=== PATIENT | male | born 1950 | race Caucasian/White ===

== ENCOUNTER → 2017-03-30 | Outpatient (CLI) | payer OTHER ==
[2015-12-19 10:51] VITALS: BP 107/82
--- NOTE | 2017-03-30 11:59 | RAD ---
Examination: Chest, PA and lateral views History: COPD, lymphoma Comparison reference 12/19/2015 Findings: Continued borderline cardiomegaly. Interval appearance of extensive airspace disease and pl eural effusion at the left base, obscuring the costophrenic angle and left hemidiaphragm. The interst itial pulmonary pattern in the right lung is exaggerated. A small right pleural effusion is present. Impression: Stable borderline cardiomegaly. Interval appearance of asymmetric pleural effusions and l eft lower lung infiltrate or atelectasis. No change in position of the right subclavian injection por t terminating in the SVC. Reported By:
== END | disposition home or self-care (01) | DRG 191 ==
LOC: LAB 11:31
PROVIDERS: ATTEND Obstetrics & Gynecology Obstetrics
DX: J44.9 Chronic obstructive pulmonary disease, unspecified (principal); C85.85 Other specified types of non-Hodgkin lymphoma, lymph nodes of inguinal region and lower limb; E29.1 Testicular hypofunction; I51.7 Cardiomegaly
CPT/HCPCS: 71020

== ENCOUNTER → 2017-03-31 | Outpatient (CLI) | payer OTHER ==
[2015-12-19 10:51] VITALS: BP 107/82
[2017-03-31 09:06] LABS: BASOPHILS # (AUTO) 0.1 X10^3/uL (0.0-0.1); BASOPHILS % (AUTO) 1.5 % (0.2-1.0); EOSINOPHILS % (AUTO) 0.7 % (0.9-2.9); HEMATOCRIT 41.9 % (42.0-54.0); HEMOGLOBIN 13.9 g/dL (13.5-18.0); LYMPHOCYTES # (AUTO) 0.9 X10^3/uL (1.3-2.9); MEAN CORPUSCULAR HEMOGLOBIN 29.5 pg (27.0-34.0); MEAN CORPUSCULAR HGB CONC 33.1 g/dL (33.0-35.0); MEAN CORPUSCULAR VOLUME 89.1 fL (80.0-100.0); MEAN PLATELET VOLUME 8.8 fL (7.4-11.0); MONOCYTES # (AUTO) 0.4 x10^3/uL (0.3-0.8); MONOCYTES % (AUTO) 10.3 % (0.0-13.0); NEUTROPHILS # (AUTO) 2.7 x10^3/uL (2.2-4.8); NEUTROPHILS % (AUTO) 66.5 % (42.0-75.0); PLATELET COUNT 83 X10^3/uL (150.0-450.0); WHITE BLOOD COUNT 4.1 X10^3/uL (3.6-10.0)
[2017-03-31 09:20] LABS: ALANINE AMINOTRANSFERASE 20 Units/L (12-78); ALBUMIN 3.5 g/dL (3.4-5.0); ALKALINE PHOSPHATASE 86 Units/L (46-116); ASPARTATE AMINO TRANSFERASE 21 Units/L (15-37); BLOOD UREA NITROGEN 20 mg/dL (7-18); CALCIUM 8.5 mg/dL (8.5-10.1); CARBON DIOXIDE 28.2 mmol/L (21-32); CHLORIDE 104 mmol/L (98-107); CREATININE 1.55 mg/dL (0.70-1.30); SODIUM 140 mmol/L (136-145); eGFR BLACK RACES 58 (>60); eGFR NON BLACK RACES 48 (>60)
== END ==
LOC: LAB 08:37
PROVIDERS: ATTEND Obstetrics & Gynecology Obstetrics
DX: J44.9 Chronic obstructive pulmonary disease, unspecified (principal); C85.85 Other specified types of non-Hodgkin lymphoma, lymph nodes of inguinal region and lower limb; R06.09 Other forms of dyspnea; R09.89 Other specified symptoms and signs involving the circulatory and respiratory systems; E29.1 Testicular hypofunction
CPT/HCPCS: 36415; 80053; 82670; 84403; 85025

== ENCOUNTER 2017-04-01 11:50 | Inpatient (IN) | payer OTHER ==
--- NOTE | 2017-04-01 11:55 | DR.SOBA ---
HPI - Time Seen Time seen: 11:54 - Complaints Chief Complaint Doctors Comments: INCREASING SOB. - Reviewed Nurses Notes Reviewed: Yes - Modifying Factors Worsens:: Nothing - Associated Signs and Symptoms Associated Signs and Symptoms: None PMH - PMH Past Medical History: COPD, Diabetes, Hypertension Past Surgical History: Yes Surgical History: Other - Family History Family Medical History: Hypertension - Social History Do you use any recreational Drugs:: No PE - Vital Signs Vitals: Temperature 100.0 F Pulse Rate 70 Respiratory Rate 18 Blood Pressure [Left Arm] 110/57 Blood Pressure [Right Arm] 123/85 Blood Pressure 125/75 O2 Sat by Pulse Oximetry 98 ROR - Labs Reviewed Result Diagrams: 04/02/17 04:45 04/02/17 04:45 Laboratory: WBC 8.7 X10^3/uL (3.6-10.0) 04/01/17 12:28 RBC 5.06 X10^6/uL (4.7-6.0) 04/01/17 12:28 Hgb 15.1 g/dL (13.5-18.0) 04/01/17 12:28 Hct 44.9 % (42.0-54.0) 04/01/17 12:28 MCV 88.7 fL (80.0-100.0) 04/01/17 12:28 MCH 29.8 pg (27.0-34.0) 04/01/17 12:28 MCHC 33.6 g/dL (33.0-35.0) 04/01/17 12:28 RDW 17.9 % (11.6-16.5) H 04/01/17 12:28 Plt Count 81 X10^3/uL (150.0-450.0) L 04/01/17 12:28 MPV 8.6 fL (7.4-11.0) 04/01/17 12:28 Neut % 84.8 % (42.0-75.0) H 04/01/17 12:28 Lymph % 8.9 % (21.0-51.0) L 04/01/17 12:28 Nash % 5.9 % (0.0-13.0) 04/01/17 12:28 Eos % 0.0 % (0.9-2.9) L 04/01/17 12:28 Baso % 0.4 % (0.2-1.0) 04/01/17 12:28 Neut # 7.4 x10^3/uL (2.2-4.8) H 04/01/17 12:28 Lymph # 0.8 X10^3/uL (1.3-2.9) L 04/01/17 12:28 Nash # 0.5 x10^3/uL (0.3-0.8) 04/01/17 12:28 Eos # 0.0 x10^3/uL (0.0-0.2) 04/01/17 12:28 Baso # 0.0 X10^3/uL (0.0-0.1) 04/01/17 12:28 Absolute Nucleated RBC 0.1 /100WBC 04/01/17 12:28 Sodium 140 mmol/L (136-145) 04/01/17 12:28 Corrected Sodium TNP 04/01/17 12:28 Potassium 4.8 mmol/L (3.5-5.1) 04/01/17 12:28 Chloride 103 mmol/L (98-107) 04/01/17 12:28 Carbon Dioxide 25.2 mmol/L (21-32) 04/01/17 12:28 BUN 23 mg/dL (7-18) H 04/01/17 12:28 Creatinine 1.77 mg/dL (0.70-1.30) H 04/01/17 12:28 Est GFR (MDRD) Af Amer 50 (>60) L 04/01/17 12:28 Est GFR (MDRD) Non-Af 41 (>60) L 04/01/17 12:28 Glucose 89 mg/dL (65-99) 04/01/17 12:28 Calcium 8.6 mg/dL (8.5-10.1) 04/01/17 12:28 Corrected Calcium TNP 04/01/17 12:28 Total Bilirubin 1.50 mg/dL (0.2-1.0) H 04/01/17 12:28 AST 93 Units/L (15-37) H 04/01/17 12:28 ALT 57 Units/L (12-78) 04/01/17 12:28 Alkaline Phosphatase 98 Units/L (46-116) 04/01/17 12:28 Creatine Kinase 170 Units/L (39-308) 04/01/17 12:28 CK-MB (CK-2) < 1.0 ng/mL (0-4.0) 04/01/17 12:28 CK/CKMB % Calc 0.6 % (<4) 04/01/17 12:28 Troponin I 0.06 ng/mL (0-1.5) 04/01/17 12:28 C-Reactive Protein 55.70 mg/L (0-3.0) H 04/01/17 12:28 Total Protein 6.4 g/dL (6.4-8.2) 04/01/17 12:28 Albumin 3.7 g/dL (3.4-5.0) 04/01/17 12:28 Globulin 2.7 g/dL (2.5-4.5) 04/01/17 12:28 Albumin/Globulin Ratio 1.4 Ratio (1.1-2.1) 04/01/17 12:28 - Discharge Plan Disposition: ADMITTED INPATIENT Condition: Stable - Follow ups/Referrals - Instructions
[2017-04-01] MEDS ORDERED: DUONEB 0.5 MG/3 MG ONE (12:03)
[2017-04-01] MEDS ORDERED: DUONEB 0.5 MG/3 MG NEB ONE (12:10)
[2017-04-01] MEDS ORDERED: SOLU-Medrol 125 MG VIAL IVP ONE (12:10)
[2017-04-01] MEDS ORDERED: SOLU-Medrol 125 MG VIAL ONE (12:19)
[2017-04-01 12:40] LABS: BASOPHILS % (AUTO) 0.4 % (0.2-1.0); HEMATOCRIT 44.9 % (42.0-54.0); HEMOGLOBIN 15.1 g/dL (13.5-18.0); LYMPHOCYTES # (AUTO) 0.8 X10^3/uL (1.3-2.9); LYMPHOCYTES % (AUTO) 8.9 % (21.0-51.0); MEAN CORPUSCULAR HEMOGLOBIN 29.8 pg (27.0-34.0); MEAN CORPUSCULAR HGB CONC 33.6 g/dL (33.0-35.0); MEAN CORPUSCULAR VOLUME 88.7 fL (80.0-100.0); MEAN PLATELET VOLUME 8.6 fL (7.4-11.0); MONOCYTES # (AUTO) 0.5 x10^3/uL (0.3-0.8); MONOCYTES % (AUTO) 5.9 % (0.0-13.0); NEUTROPHILS # (AUTO) 7.4 x10^3/uL (2.2-4.8); NEUTROPHILS % (AUTO) 84.8 % (42.0-75.0); PLATELET COUNT 81 X10^3/uL (150.0-450.0); RED BLOOD COUNT 5.06 X10^6/uL (4.7-6.0); RED CELL DISTRIBUTION WIDTH 17.9 % (11.6-16.5); WHITE BLOOD COUNT 8.7 X10^3/uL (3.6-10.0)
[2017-04-01 12:55] LABS: BLOOD UREA NITROGEN 23 mg/dL (7-18); CALCIUM 8.6 mg/dL (8.5-10.1); CARBON DIOXIDE 25.2 mmol/L (21-32); CHLORIDE 103 mmol/L (98-107); CREATININE 1.77 mg/dL (0.70-1.30); SODIUM 140 mmol/L (136-145); TROPONIN I 0.06 ng/mL (0-1.5); eGFR BLACK RACES 50 (>60); eGFR NON BLACK RACES 41 (>60)
[2017-04-01 12:59] LABS: ALANINE AMINOTRANSFERASE 57 Units/L (12-78); ALBUMIN 3.7 g/dL (3.4-5.0); ALKALINE PHOSPHATASE 98 Units/L (46-116); ASPARTATE AMINO TRANSFERASE 93 Units/L (15-37); CREATINE KINASE 170 Units/L (39-308); CREATINE KINASE MB < 1.0 ng/mL (0-4.0); TOTAL PROTEIN 6.4 g/dL (6.4-8.2)
[2017-04-01 13:00] LABS: CKMB % 0.6 % (<4)
--- NOTE | 2017-04-01 13:14 | RAD ---
Examination: AP chest History: SOB Comparison reference 03/30/2017 Findings: Stable heart size. Extensive opacity continues at the left base, compatible with combinatio n of airspace disease and left pleural effusion. The right lung is essentially clear although the ext yashira costophrenic angle is not included; small pleural effusion may still be present. There is no nicole nge in position of the right subclavian injection port. Impression: Considering technical and projection differences there is little if any change. Large are as of pulmonary consolidation and pleural fluid continue at the left base. Reported By:
[2017-04-01 15:07] LABS: C-REACTIVE PROTEIN 55.7 mg/L (0-3.0)
[2017-04-01] MEDS ORDERED: ROCEPHIN 1 GM IV PREMIX 1 GM/50 ML IV.SOLN. IV ONE (15:14)
[2017-04-01] MEDS ORDERED: NS 1/2 1000 ML IV 1,000 ML IV ONE (15:14)
[2017-04-01] MEDS ORDERED: ROCEPHIN VIAL 1 GM 1 GM in NS 50 ML IV + SPIKE MINIBAG* 50 ML IV SCH (15:15)
[2017-04-01 15:16] LABS: LACTIC ACID 2.5 mmol/L (0.4-2.0)
[2017-04-01] MEDS: NS 1/2 1000 ML IV 1,000 ML IV SCH (15:20)
[2017-04-01] MEDS ORDERED: TUSSIONEX PENNKINETIC SUSP PO PRN (15:22)
[2017-04-01] MEDS: DUONEB 0.5 MG/3 MG NEB SCH ×2 (16:11→20:22)
[2017-04-01 16:55] VITALS: BMI 23.7
[2017-04-01 17:32] LABS: BILIRUBIN,URINE NEGATIVE (NEGATIVE); BLOOD/HEMOGLOBIN,URINE 2+ (NEGATIVE); GLUCOSE, URINE NEGATIVE (NEGATIVE); KETONES,URINE 1+ (NEGATIVE); LEUKOCYTE ESTERASE ,URINE NEGATIVE (NEGATIVE); NITRITES,URINE NEGATIVE (NEGATIVE); PROTEIN,URINE 2+ (NEGATIVE); UROBILINOGEN,URINE 1+ (NORMAL)
[2017-04-01] MEDS: FORTAZ or TAZICEF INJ 1 GM in NS 50 ML IV 50 ML IV SCH ×2 (17:46→21:30)
[2017-04-01] MEDS: ROBITUSSIN DM PO SCH ×2 (17:46→20:25)
[2017-04-01 17:53] LABS: APPEARANCE,URINE SLIGHTLY HAZY (CLEAR); COLOR,URINE YELLOW (YELLOW)
[2017-04-01 17:54] LABS: AMORPHOUS SEDIMENT,UR 1+ /HPF (NEGATIVE); BACTERIA,URINE TRACE /HPF (NEGATIVE); GRANULAR CASTS,URINE MANY /LPF (NEGATIVE); MUCUS,URINE FEW /HPF (NEGATIVE); SQUAMOUS EPITHELIAL CELL,UR RARE /HPF (NEGATIVE)
[2017-04-02] MEDS: DUONEB 0.5 MG/3 MG NEB SCH ×6 (01:07→20:49)
[2017-04-02] MEDS: FORTAZ or TAZICEF INJ 1 GM in NS 50 ML IV 50 ML IV SCH ×3 (05:44→21:42)
--- NOTE | 2017-04-02 06:08 | RAD ---
Examination: Chest, PA and lateral views History: Pneumonia Comparison reference 04/01/2017 Findings: Continued upper normal heart size. Very small right pleural effusion, larger left pleural e ffusion. Airspace disease is noted in the partly obscured left lower lung. Diffuse interstitial promi nence is present bilaterally. No pneumothorax is seen. Impression: Persistent pleural-parenchymal abnormality left base with very small right pleural effusi on as well. Considering projection differences, little change since 1 day prior. Reported By:
[2017-04-02 06:20] LABS: BASOPHILS % (AUTO) 0.1 % (0.2-1.0); HEMATOCRIT 38.4 % (42.0-54.0); HEMOGLOBIN 12.9 g/dL (13.5-18.0); LYMPHOCYTES # (AUTO) 0.7 X10^3/uL (1.3-2.9); LYMPHOCYTES % (AUTO) 8.2 % (21.0-51.0); MEAN CORPUSCULAR HEMOGLOBIN 29.6 pg (27.0-34.0); MEAN CORPUSCULAR HGB CONC 33.8 g/dL (33.0-35.0); MEAN CORPUSCULAR VOLUME 87.8 fL (80.0-100.0); MEAN PLATELET VOLUME 8.8 fL (7.4-11.0); MONOCYTES # (AUTO) 0.4 x10^3/uL (0.3-0.8); MONOCYTES % (AUTO) 4.3 % (0.0-13.0); NEUTROPHILS # (AUTO) 7.7 x10^3/uL (2.2-4.8); NEUTROPHILS % (AUTO) 87.4 % (42.0-75.0); PLATELET COUNT 68 X10^3/uL (150.0-450.0); RED BLOOD COUNT 4.37 X10^6/uL (4.7-6.0); RED CELL DISTRIBUTION WIDTH 17.6 % (11.6-16.5); WHITE BLOOD COUNT 8.8 X10^3/uL (3.6-10.0)
[2017-04-02] MEDS: NS 1/2 1000 ML IV 1,000 ML IV SCH ×2 (06:28→08:47)
[2017-04-02 06:41] LABS: ALBUMIN 2.6 g/dL (3.4-5.0); CALCIUM 7.8 mg/dL (8.5-10.1); CARBON DIOXIDE 25.7 mmol/L (21-32); COR CA(FOR HYPOALB) 8.9 mg/dL (8.5-10.1); CREATININE 1.58 mg/dL (0.70-1.30)
[2017-04-02] MEDS: LEVAQUIN PREMIX IV 750 MG 750 MG/150 ML BAG IV SCH (08:45)
[2017-04-02] MEDS: ROBITUSSIN DM PO SCH ×4 (08:46→21:41)
[2017-04-02] MEDS ORDERED: ATIVAN TAB 0.5 MG PO PRN (10:54)
[2017-04-02] MEDS ORDERED: PREGABALIN 300 MG PO SCH (11:00)
[2017-04-02] MEDS ORDERED: TOPROL XL PO SCH (11:00)
[2017-04-02] MEDS ORDERED: NS 1/2 1000 ML IV 1,000 ML IV ONE (12:57)
[2017-04-02] MEDS: CYMBALTA PO SCH (13:12)
[2017-04-02] MEDS: GLUCOPHAGE XR PO SCH ×2 (13:12→21:41)
[2017-04-02] MEDS: NORCO 10/325 TAB PO PRN (13:13)
[2017-04-02] MEDS: COREG TAB 6.25 MG PO SCH ×2 (13:13→21:41)
[2017-04-02] MEDS: ALBUMIN HUMAN 25%- 100ML 100 ML IV SCH (13:14)
[2017-04-02] MEDS: LASIX IVP SCH (16:54)
[2017-04-02] MEDS: M.S. CONTIN 30 MG EXTENDED RELEASE PO PRN (21:41)
[2017-04-02] MEDS: LYRICA CAP 150 MG PO SCH (21:41)
[2017-04-03] MEDS: DUONEB 0.5 MG/3 MG NEB SCH ×6 (01:05→20:53)
[2017-04-03] MEDS ORDERED: NS 1/2 1000 ML IV 1,000 ML IV ONE (05:14)
[2017-04-03] MEDS: NORCO 10/325 TAB PO PRN (05:16)
[2017-04-03] MEDS: FORTAZ or TAZICEF INJ 1 GM in NS 50 ML IV 50 ML IV SCH ×3 (05:17→21:25)
[2017-04-03] MEDS: NS 1/2 1000 ML IV 1,000 ML IV SCH (05:17)
[2017-04-03 05:28] LABS: BASOPHILS % (AUTO) 0.1 % (0.2-1.0); EOSINOPHILS % (AUTO) 0.1 % (0.9-2.9); HEMATOCRIT 36.7 % (42.0-54.0); HEMOGLOBIN 12.2 g/dL (13.5-18.0); LYMPHOCYTES # (AUTO) 0.6 X10^3/uL (1.3-2.9); LYMPHOCYTES % (AUTO) 10.7 % (21.0-51.0); MEAN CORPUSCULAR HEMOGLOBIN 29.6 pg (27.0-34.0); MEAN CORPUSCULAR HGB CONC 33.2 g/dL (33.0-35.0); MEAN CORPUSCULAR VOLUME 89.2 fL (80.0-100.0); MEAN PLATELET VOLUME 8.7 fL (7.4-11.0); MONOCYTES # (AUTO) 0.4 x10^3/uL (0.3-0.8); MONOCYTES % (AUTO) 6.6 % (0.0-13.0); NEUTROPHILS # (AUTO) 4.6 x10^3/uL (2.2-4.8); NEUTROPHILS % (AUTO) 82.5 % (42.0-75.0); PLATELET COUNT 63 X10^3/uL (150.0-450.0); RED BLOOD COUNT 4.11 X10^6/uL (4.7-6.0); RED CELL DISTRIBUTION WIDTH 17.9 % (11.6-16.5); WHITE BLOOD COUNT 5.5 X10^3/uL (3.6-10.0)
[2017-04-03 05:39] LABS: ALANINE AMINOTRANSFERASE 51 Units/L (12-78); ALKALINE PHOSPHATASE 63 Units/L (46-116); ASPARTATE AMINO TRANSFERASE 54 Units/L (15-37); BLOOD UREA NITROGEN 20 mg/dL (7-18); CARBON DIOXIDE 29.2 mmol/L (21-32); CHLORIDE 106 mmol/L (98-107); COR CA(FOR HYPOALB) 8.8 mg/dL (8.5-10.1); CREATININE 1.29 mg/dL (0.70-1.30); SODIUM 141 mmol/L (136-145); TOTAL PROTEIN 5.2 g/dL (6.4-8.2); eGFR BLACK RACES > 60 (>60); eGFR NON BLACK RACES 59 (>60)
--- NOTE | 2017-04-03 06:42 | RAD ---
Examination: Chest, PA and lateral views History: Pneumonia, history of lymphoma Comparison reference 04/02/2017 Findings: Stable heart size with no change in the left lower lung parenchymal abnormality and associa eileen pleural fluid. A small right pleural effusion is unchanged. Right subclavian injection port termi nates near the cavoatrial junction. There is no evidence for increasing airspace disease, pulmonary e robert or pneumothorax. Impression: No change. Reported By:
[2017-04-03] MEDS: LASIX IVP SCH (08:10)
[2017-04-03] MEDS: ALBUMIN HUMAN 25%- 100ML 100 ML IV SCH (08:10)
[2017-04-03] MEDS: ROBITUSSIN DM PO SCH ×4 (08:11→21:25)
[2017-04-03] MEDS: LEVAQUIN PREMIX IV 750 MG 750 MG/150 ML BAG IV SCH (08:11)
[2017-04-03] MEDS: COREG TAB 6.25 MG PO SCH ×2 (08:11→21:25)
[2017-04-03] MEDS: LYRICA CAP 150 MG PO SCH ×2 (08:11→21:25)
[2017-04-03] MEDS: GLUCOPHAGE XR PO SCH ×2 (08:11→21:25)
[2017-04-03] MEDS: CYMBALTA PO SCH (10:05)
[2017-04-03] MEDS: M.S. CONTIN 30 MG EXTENDED RELEASE PO PRN (13:22)
[2017-04-04] MEDS: DUONEB 0.5 MG/3 MG NEB SCH ×6 (01:30→20:53)
[2017-04-04] MEDS: NS 1/2 1000 ML IV 1,000 ML IV SCH ×3 (01:30→23:09)
[2017-04-04] MEDS ORDERED: NS 1/2 1000 ML IV 1,000 ML IV ONE (04:31)
[2017-04-04 05:08] LABS: BASOPHILS % (AUTO) 0.3 % (0.2-1.0); EOSINOPHILS # (AUTO) 0.1 x10^3/uL (0.0-0.2); EOSINOPHILS % (AUTO) 1.5 % (0.9-2.9); HEMATOCRIT 36.5 % (42.0-54.0); HEMOGLOBIN 12.2 g/dL (13.5-18.0); LYMPHOCYTES # (AUTO) 0.8 X10^3/uL (1.3-2.9); LYMPHOCYTES % (AUTO) 19.4 % (21.0-51.0); MEAN CORPUSCULAR HEMOGLOBIN 29.6 pg (27.0-34.0); MEAN CORPUSCULAR HGB CONC 33.5 g/dL (33.0-35.0); MEAN CORPUSCULAR VOLUME 88.3 fL (80.0-100.0); MONOCYTES # (AUTO) 0.4 x10^3/uL (0.3-0.8); MONOCYTES % (AUTO) 9.3 % (0.0-13.0); NEUTROPHILS # (AUTO) 2.9 x10^3/uL (2.2-4.8); NEUTROPHILS % (AUTO) 69.5 % (42.0-75.0); PLATELET COUNT 62 X10^3/uL (150.0-450.0); RED BLOOD COUNT 4.13 X10^6/uL (4.7-6.0); RED CELL DISTRIBUTION WIDTH 17.3 % (11.6-16.5); WHITE BLOOD COUNT 4.2 X10^3/uL (3.6-10.0)
[2017-04-04 05:13] LABS: ALANINE AMINOTRANSFERASE 62 Units/L (12-78); ALBUMIN 3.1 g/dL (3.4-5.0); ALKALINE PHOSPHATASE 67 Units/L (46-116); ASPARTATE AMINO TRANSFERASE 61 Units/L (15-37); BLOOD UREA NITROGEN 18 mg/dL (7-18); CALCIUM 8.5 mg/dL (8.5-10.1); CHLORIDE 104 mmol/L (98-107); COR CA(FOR HYPOALB) 9.2 mg/dL (8.5-10.1); CREATININE 1.28 mg/dL (0.70-1.30); SODIUM 142 mmol/L (136-145); TOTAL PROTEIN 5.6 g/dL (6.4-8.2); eGFR BLACK RACES > 60 (>60); eGFR NON BLACK RACES 60 (>60)
[2017-04-04] MEDS: FORTAZ or TAZICEF INJ 1 GM in NS 50 ML IV 50 ML IV SCH ×3 (05:53→21:25)
[2017-04-04] MEDS: M.S. CONTIN 30 MG EXTENDED RELEASE PO PRN (07:24)
[2017-04-04] MEDS: LEVAQUIN PREMIX IV 750 MG 750 MG/150 ML BAG IV SCH (09:37)
[2017-04-04] MEDS: GLUCOPHAGE XR PO SCH ×2 (09:38→21:24)
[2017-04-04] MEDS: ROBITUSSIN DM PO SCH ×4 (09:38→21:25)
[2017-04-04] MEDS: LYRICA CAP 150 MG PO SCH ×2 (09:38→21:24)
[2017-04-04] MEDS: COREG TAB 6.25 MG PO SCH ×2 (09:38→21:24)
[2017-04-04] MEDS: ALBUMIN HUMAN 25%- 100ML 100 ML IV SCH (09:39)
[2017-04-04] MEDS: CYMBALTA PO SCH (09:44)
[2017-04-04] MEDS: LASIX IVP SCH (09:45)
[2017-04-04] MEDS: NORCO 10/325 TAB PO PRN (13:35)
--- NOTE | 2017-04-04 17:00 | RAD ---
History: Follow-up of pneumonia Study: PA and lateral chest Comparison: Yesterday Findings: There is no significant change of increased density at the left lung base with a blunted co stophrenic angle. There is a tiny right pleural effusion as before. There is an unchanged position of a right subclavian Port-A-Cath. The heart size is prominent. There is central peribronchial thickeni ng. Impression: Unchanged small left and minimal right pleural effusions Reported By:
[2017-04-05] MEDS: DUONEB 0.5 MG/3 MG NEB SCH ×3 (01:22→08:15)
[2017-04-05] MEDS ORDERED: NS 1/2 1000 ML IV 1,000 ML IV ONE (02:43)
[2017-04-05] MEDS: M.S. CONTIN 30 MG EXTENDED RELEASE PO PRN (02:49)
[2017-04-05] MEDS: NS 1/2 1000 ML IV 1,000 ML IV SCH (03:11)
[2017-04-05 05:00] LABS: BASOPHILS % (AUTO) 0.3 % (0.2-1.0); EOSINOPHILS # (AUTO) 0.1 x10^3/uL (0.0-0.2); EOSINOPHILS % (AUTO) 1.8 % (0.9-2.9); HEMOGLOBIN 12.3 g/dL (13.5-18.0); LYMPHOCYTES # (AUTO) 0.9 X10^3/uL (1.3-2.9); LYMPHOCYTES % (AUTO) 22.6 % (21.0-51.0); MEAN CORPUSCULAR HEMOGLOBIN 29.5 pg (27.0-34.0); MEAN CORPUSCULAR HGB CONC 33.3 g/dL (33.0-35.0); MEAN CORPUSCULAR VOLUME 88.4 fL (80.0-100.0); MEAN PLATELET VOLUME 8.6 fL (7.4-11.0); MONOCYTES # (AUTO) 0.4 x10^3/uL (0.3-0.8); MONOCYTES % (AUTO) 9.9 % (0.0-13.0); NEUTROPHILS # (AUTO) 2.6 x10^3/uL (2.2-4.8); NEUTROPHILS % (AUTO) 65.4 % (42.0-75.0); PLATELET COUNT 63 X10^3/uL (150.0-450.0); RED BLOOD COUNT 4.18 X10^6/uL (4.7-6.0); RED CELL DISTRIBUTION WIDTH 17.2 % (11.6-16.5); WHITE BLOOD COUNT 3.9 X10^3/uL (3.6-10.0)
[2017-04-05 05:16] LABS: ALANINE AMINOTRANSFERASE 55 Units/L (12-78); ALBUMIN 3.2 g/dL (3.4-5.0); ALKALINE PHOSPHATASE 63 Units/L (46-116); ASPARTATE AMINO TRANSFERASE 44 Units/L (15-37); BLOOD UREA NITROGEN 16 mg/dL (7-18); CALCIUM 8.6 mg/dL (8.5-10.1); CARBON DIOXIDE 34.6 mmol/L (21-32); CHLORIDE 101 mmol/L (98-107); COR CA(FOR HYPOALB) 9.2 mg/dL (8.5-10.1); CREATININE 1.12 mg/dL (0.70-1.30); SODIUM 140 mmol/L (136-145); TOTAL PROTEIN 5.6 g/dL (6.4-8.2); eGFR BLACK RACES > 60 (>60); eGFR NON BLACK RACES > 60 (>60)
[2017-04-05] MEDS: FORTAZ or TAZICEF INJ 1 GM in NS 50 ML IV 50 ML IV SCH (05:57)
--- NOTE | 2017-04-05 07:21 | RAD ---
Examination: AP chest, portable History: Pneumonia, lymphoma Comparison reference 04/04/2017 Findings: Continued normal heart size. Diffuse interstitial prominence is stable in the right lung. T here is persistent opacification at the left base consistent with combination of airspace disease and pleural fluid. There is no change in position of the right subclavian injection port. Impression: No change or new abnormality since 1 day prior. Reported By:
[2017-04-05 07:47] VITALS: BP 111/66
[2017-04-05] MEDS: ALBUMIN HUMAN 25%- 100ML 100 ML IV SCH (08:59)
[2017-04-05] MEDS: GLUCOPHAGE XR PO SCH (09:00)
[2017-04-05] MEDS: LASIX IVP SCH (09:00)
[2017-04-05] MEDS: ROBITUSSIN DM PO SCH (09:00)
[2017-04-05] MEDS: CYMBALTA PO SCH (09:00)
[2017-04-05] MEDS: COREG TAB 6.25 MG PO SCH (09:00)
[2017-04-05] MEDS: LYRICA CAP 150 MG PO SCH (09:00)
[2017-04-05] MEDS: LEVAQUIN PREMIX IV 750 MG 750 MG/150 ML BAG IV SCH (09:00)
[2017-04-05] MEDS: NORCO 10/325 TAB PO PRN (09:01)
== END 2017-04-05 12:00 | disposition home or self-care (01) | DRG 178 ==
LOC: ER 12:01 → MED/SURG 15:27
PROVIDERS: ADMIT Internal Medicine; ATTEND Obstetrics & Gynecology Obstetrics
DX: J15.211 Pneumonia due to Methicillin susceptible Staphylococcus aureus (principal); I50.9 Heart failure, unspecified; R06.03 Acute respiratory distress; R06.02 Shortness of breath; J44.9 Chronic obstructive pulmonary disease, unspecified; E11.65 Type 2 diabetes mellitus with hyperglycemia; I10 Essential (primary) hypertension; J90 Pleural effusion, not elsewhere classified
CPT/HCPCS: 36415; 71010; 71020; 80053; 81001; 82550; 82553; 83605; 84484; 85025; 86140; 87040; 87070; 87077; 87186; 87205; 93005; 93010; 94640; 94760; 96365; 96374; 96375; 99284; A4222; P9047; J0696; J0713; J1940; J1956; J2930; J7620